=== PATIENT | female | born 1955 | race Caucasian/White ===

== ENCOUNTER → 2023-12-05 14:20 | Outpatient (REF) | payer OTHER, SELFPAY ==
[2023-12-05 13:51] LABS: % Basophils 0.6 % (0-2); % Immature Granulocytes 0.2 % (0-0.5); % Lymphocytes 15.2 % (20.5-51.1); % Monocytes 6.1 % (1.7-9.3); % Neutrophils 75.9 % (42.2-75.2); Absolute Eosinophils 0.1 10^3/uL (0-0.7); Absolute Lymphocytes 0.8 10^3/uL (1.2-3.4); Absolute Monocytes 0.3 10^3/uL (0.1-0.6); Absolute Neutrophils 4.1 10^3/uL (1.4-6.5); Hematocrit 33.8 % (37.0-47.0); Hemoglobin 11.3 g/dL (12.0-16.0); Mean Corp Hgb Conc. 33.4 g/dL (33.0-37.0); Mean Corpuscular Hgb 29.8 pg (27.0-31.0); Mean Corpuscular Volume 89.2 fL (81.0-99.0); Mean Platelet Volume 9.6 fL (7.4-10.4); Platelet Count 273 10^3/uL (130-400); Red Blood Cell Count 3.79 10^6/uL (4.20-5.40); Red Cell Dist. Width 12.5 % (11.5-14.5); White Blood Cell Count 5.4 10^3/uL (4.8-10.8)
[2023-12-05 14:30] LABS: ALT (SGPT) 17 U/L (0-35); AST (SGOT) 23 U/L (14-36); Albumin 4.3 g/dl (3.5-5.0); Alkaline Phosphatase 106 U/L (38-126); Blood Urea Nitrogen 14 mg/dl (7-17); Calcium 9.3 mg/dl (8.4-10.2); Carbon Dioxide 26 mmol/L (22-30); Chloride 98 mmol/L (98-107); Glucose 111 mg/dl (70-99); Potassium 3.9 mmol/L (3.5-5.1); Sodium 134 mmol/L (135-145); Total Bilirubin 0.4 mg/dl (0.2-1.3); eGFR > 60.00
== END ==
LOC: OIDL 14:20
PROVIDERS: ATTENDING PHYSICIAN Internal Medicine Hematology & Oncology
DX: C34.32 Malignant neoplasm of lower lobe, left bronchus or lung (principal)
CPT/HCPCS: 80053; 85025

== ENCOUNTER → 2023-12-24 13:26 | Outpatient (REF) | payer OTHER, SELFPAY | LOC: MRI 3T 13:26 | PROVIDERS: ATTENDING PHYSICIAN Internal Medicine Hematology & Oncology; FAMILY PHYSICIAN Family Medicine | DX: C34.32 Malignant neoplasm of lower lobe, left bronchus or lung (principal); Z57.31 Occupational exposure to environmental tobacco smoke; Z72.0 Tobacco use; C77.1 Secondary and unspecified malignant neoplasm of intrathoracic lymph nodes; C79.51 Secondary malignant neoplasm of bone; C78.7 Secondary malignant neoplasm of liver and intrahepatic bile duct; C78.00 Secondary malignant neoplasm of unspecified lung; C77.2 Secondary and unspecified malignant neoplasm of intra-abdominal lymph nodes; C77.0 Secondary and unspecified malignant neoplasm of lymph nodes of head, face and neck; M87.180 Osteonecrosis due to drugs, jaw; R26.89 Other abnormalities of gait and mobility; E87.1 Hypo-osmolality and hyponatremia | CPT/HCPCS: 70553; A9575 ==

== ENCOUNTER → 2024-01-09 17:23 | Outpatient (REF) | payer OTHER, SELFPAY | LOC: WDC 17:23 | PROVIDERS: ATTENDING PHYSICIAN Internal Medicine Hematology & Oncology; FAMILY PHYSICIAN Family Medicine | DX: Z12.31 Encounter for screening mammogram for malignant neoplasm of breast (principal) | CPT/HCPCS: 77063; 77067 ==

== ENCOUNTER 2024-01-22 06:09 | Day surgery (SDC) | payer OTHER, SELFPAY ==
[2024-01-22] VITALS (8 sets, daily range): BP systolic 129–152; BP diastolic 56–115; BMI 33.5
== END 2024-01-22 10:10 | disposition home or self-care (01) ==
LOC: GI 06:09
PROVIDERS: ATTENDING PHYSICIAN Internal Medicine Critical Care Medicine
DX: R59.0 Localized enlarged lymph nodes (principal); C77.1 Secondary and unspecified malignant neoplasm of intrathoracic lymph nodes
CPT/HCPCS: 31629; 31645; 31654; 88173; 88305; 88341; 88342

== ENCOUNTER → 2024-05-08 07:14 | Outpatient (REF) | payer OTHER, SELFPAY | LOC: MRI 07:14 | PROVIDERS: ATTENDING PHYSICIAN Internal Medicine Hematology & Oncology; FAMILY PHYSICIAN Family Medicine | DX: C34.32 Malignant neoplasm of lower lobe, left bronchus or lung (principal) | CPT/HCPCS: 70553; A9575 ==

== ENCOUNTER → 2024-12-14 14:29 | Outpatient (REF) | payer OTHER, SELFPAY ==
[2024-12-14 15:38] LABS: Vitamin D, 25-OH*** 15.2 ng/mL (30-80)
== END ==
LOC: OIDL 14:29
PROVIDERS: ATTENDING PHYSICIAN Internal Medicine Hematology & Oncology
DX: C34.32 Malignant neoplasm of lower lobe, left bronchus or lung (principal); Z57.31 Occupational exposure to environmental tobacco smoke; Z72.0 Tobacco use; C77.1 Secondary and unspecified malignant neoplasm of intrathoracic lymph nodes
CPT/HCPCS: 82306

== ENCOUNTER → 2024-12-23 14:39 | Outpatient (REF) | payer OTHER, SELFPAY | LOC: MRI 14:39 | PROVIDERS: ATTENDING PHYSICIAN Internal Medicine Hematology & Oncology; FAMILY PHYSICIAN Family Medicine | DX: C34.32 Malignant neoplasm of lower lobe, left bronchus or lung (principal); Z57.31 Occupational exposure to environmental tobacco smoke; Z72.0 Tobacco use; C77.1 Secondary and unspecified malignant neoplasm of intrathoracic lymph nodes; C79.51 Secondary malignant neoplasm of bone; C78.7 Secondary malignant neoplasm of liver and intrahepatic bile duct; C78.00 Secondary malignant neoplasm of unspecified lung; C77.2 Secondary and unspecified malignant neoplasm of intra-abdominal lymph nodes; C77.0 Secondary and unspecified malignant neoplasm of lymph nodes of head, face and neck; M87.180 Osteonecrosis due to drugs, jaw; R26.89 Other abnormalities of gait and mobility; E87.1 Hypo-osmolality and hyponatremia; D50.9 Iron deficiency anemia, unspecified | CPT/HCPCS: 70553; A9575 ==

== ENCOUNTER → 2025-01-12 13:52 | Outpatient (REF) | payer OTHER, SELFPAY | LOC: WDC 13:52 | PROVIDERS: ATTENDING PHYSICIAN Internal Medicine Hematology & Oncology; FAMILY PHYSICIAN Pediatrics | DX: Z12.31 Encounter for screening mammogram for malignant neoplasm of breast (principal) | CPT/HCPCS: 77063; 77067 ==

== ENCOUNTER 2025-01-13 08:02 | Outpatient (RCR) | payer OTHER, SELFPAY ==
[2025-01-06] VITALS (12 sets, daily range): BP systolic 99–131; BP diastolic 49–59; BMI 37.1
[2025-01-06] MEDS: EMEND 150 MG IV (08:28)
[2025-01-06] MEDS: ALOXI 5 MG IV (09:06)
[2025-01-06] MEDS: DECADRON 52 MG IV (09:07)
[2025-01-06] MEDS: ALIMTA/PEMETREXED 100 MG IV (09:42)
[2025-01-06] MEDS: PARAPLATIN 300.4 MG IV (09:58)
[2025-01-06] MEDS: BENADRYL 51 MG IV (11:12)
[2025-01-06] MEDS: TYLENOL 650 MG PO (11:12)
[2025-01-06] MEDS: [UNRECOGNIZED DRUG - OTHER] 250 MG IV (12:10)
[2025-01-06] MEDS: SOLU-CORTEF 100 MG IV (15:11)
[2025-01-06] MEDS: PEPCID 10 ML IV (15:15)
[2025-01-06] MEDS: PEPCID 10 MG IV (15:15)
[2025-01-06] MEDS: CYANOCOBALAMIN 1000 MCG IM (15:21)
--- NOTE | 2025-01-06 15:26 | PTCARENOTE ---
Addendum entered by Frances Leyva RN 01/06/25 16:04:
1600 VS stable Infusion resumed at 75ml /hr
Addendum entered by Frances Leyva RN 01/06/25 15:36:
1350 Rybrevant reassumed at 37.5ml/hr Will continue to monitor.
Original Note:
1500 Pt receiving Rybrevant infusion started at 1215 at 50ml/hr rate increase to 75ml/hr at 1415.
Pt c/o 'Tickle in throat a little tightness in breathing' ' feel like when i need to use my inhaler' Rybrevant infusion stopped. IV flushing with NSS.
VS HR 81, Resp 20, BP 107/57 Pulse OX 97% on room air.
Spoke to Dr. Potts
1515 Solucortef 100mg, Pepcid 20mg given IV push as instructed
1515 Pt stated 'feels better, no mor tickle'
lungs clear to asculation.
[2025-01-07] VITALS (14 sets, daily range): BP systolic 101–135; BP diastolic 49–60
[2025-01-07] MEDS: TYLENOL 650 MG PO (08:19)
[2025-01-07] MEDS: DECADRON 51 MG IV (08:20)
[2025-01-07] MEDS: BENADRYL 51 MG IV (08:46)
[2025-01-07] MEDS: [UNRECOGNIZED DRUG - OTHER] 250 MG IV (09:21)
[2025-01-07] MEDS: FULPHILA 6 MG SC (15:21)
[2025-01-13] VITALS (10 sets, daily range): BP systolic 101–121; BP diastolic 46–69
[2025-01-13] MEDS: TYLENOL 650 MG PO (08:59)
[2025-01-13] MEDS: DECADRON 51 MG IV (09:00)
[2025-01-13] MEDS: BENADRYL 51 MG IV (09:32)
[2025-01-13] MEDS: [UNRECOGNIZED DRUG - OTHER] 250 MG IV (10:02)
--- NOTE | 2025-01-13 16:13 | DOWNTIME ---
There was a [employer] Downtime on 01/13/2025 from 1230 to 01/13/2025 at 1550. Downtime documentation of patient's care, including medication administrations, has been reconciled in the electronic record per guidelines. Refer to the
patient's paper chart under the miscellaneous tab to see printed paper medication records and downtime forms.
== END 2025-01-14 08:38 | disposition home or self-care (01) ==
LOC: OID 08:02
PROVIDERS: ATTENDING PHYSICIAN Internal Medicine Hematology & Oncology
DX: Z51.11 Encounter for antineoplastic chemotherapy (principal); C34.32 Malignant neoplasm of lower lobe, left bronchus or lung; C77.1 Secondary and unspecified malignant neoplasm of intrathoracic lymph nodes; C79.51 Secondary malignant neoplasm of bone; Z57.31 Occupational exposure to environmental tobacco smoke; C78.7 Secondary malignant neoplasm of liver and intrahepatic bile duct; C78.00 Secondary malignant neoplasm of unspecified lung; C77.2 Secondary and unspecified malignant neoplasm of intra-abdominal lymph nodes; Z72.0 Tobacco use; C77.0 Secondary and unspecified malignant neoplasm of lymph nodes of head, face and neck; M87.180 Osteonecrosis due to drugs, jaw; R26.89 Other abnormalities of gait and mobility; E87.1 Hypo-osmolality and hyponatremia; D50.9 Iron deficiency anemia, unspecified
CPT/HCPCS: 96367; 96372; 96375; 96411; 96413; 96415; 96417; J1453; J2469; J9045; J9061; J9305; Q5108

== ENCOUNTER 2025-01-28 14:22 | Outpatient (RCR) | payer OTHER, SELFPAY ==
[2025-01-20] VITALS (8 sets, daily range): BP systolic 94–124; BP diastolic 56–88
[2025-01-20] MEDS: TYLENOL 650 MG PO (08:34)
[2025-01-20] MEDS: DECADRON 51 MG IV (08:34)
[2025-01-20] MEDS: BENADRYL 51 MG IV (09:02)
[2025-01-20] MEDS: [UNRECOGNIZED DRUG - OTHER] 250 MG IV (09:38)
[2025-01-27] VITALS (7 sets, daily range): BP systolic 102–123; BP diastolic 55–74; BMI 36.6
[2025-01-27] MEDS: EMEND 150 MG IV (08:31)
[2025-01-27] MEDS: ALOXI 5 MG IV (09:13)
[2025-01-27] MEDS: DECADRON 51 MG IV (09:14)
[2025-01-27] MEDS: ALIMTA/PEMETREXED 100 MG IV (09:47)
[2025-01-27] MEDS: PARAPLATIN 299.4 MG IV (10:08)
[2025-01-27] MEDS: BENADRYL 51 MG IV (11:20)
[2025-01-27] MEDS: TYLENOL 650 MG PO (11:20)
[2025-01-27] MEDS: [UNRECOGNIZED DRUG - OTHER] 250 MG IV (11:58)
[2025-01-28 14:30] VITALS: BP 112/71
[2025-01-28] MEDS: FULPHILA 6 MG SC (14:52)
== END 2025-02-12 13:57 | disposition home or self-care (01) ==
LOC: OID 14:22
PROVIDERS: ATTENDING PHYSICIAN Internal Medicine Hematology & Oncology; FAMILY PHYSICIAN Family Medicine
DX: Z51.11 Encounter for antineoplastic chemotherapy (principal); C34.32 Malignant neoplasm of lower lobe, left bronchus or lung; C79.51 Secondary malignant neoplasm of bone; C78.7 Secondary malignant neoplasm of liver and intrahepatic bile duct; C77.1 Secondary and unspecified malignant neoplasm of intrathoracic lymph nodes; C77.2 Secondary and unspecified malignant neoplasm of intra-abdominal lymph nodes; Z72.0 Tobacco use; C78.00 Secondary malignant neoplasm of unspecified lung; C77.0 Secondary and unspecified malignant neoplasm of lymph nodes of head, face and neck; M87.180 Osteonecrosis due to drugs, jaw; E87.1 Hypo-osmolality and hyponatremia; R26.89 Other abnormalities of gait and mobility; D50.9 Iron deficiency anemia, unspecified; Z57.31 Occupational exposure to environmental tobacco smoke
CPT/HCPCS: 83735; 96367; 96372; 96375; 96411; 96413; 96415; J1453; J2469; J9045; J9061; J9305; Q5108

== ENCOUNTER → 2025-07-28 12:26 | Outpatient (REF) | payer OTHER, SELFPAY | LOC: RAD 12:26 | PROVIDERS: ATTENDING PHYSICIAN Internal Medicine Hematology & Oncology; FAMILY PHYSICIAN Family Medicine | DX: C34.32 Malignant neoplasm of lower lobe, left bronchus or lung (principal); Z57.31 Occupational exposure to environmental tobacco smoke; Z72.0 Tobacco use; C77.0 Secondary and unspecified malignant neoplasm of lymph nodes of head, face and neck; C77.2 Secondary and unspecified malignant neoplasm of intra-abdominal lymph nodes; C77.1 Secondary and unspecified malignant neoplasm of intrathoracic lymph nodes; C79.51 Secondary malignant neoplasm of bone; C78.7 Secondary malignant neoplasm of liver and intrahepatic bile duct | CPT/HCPCS: 71260; 74177; Q9967 ==